=== PATIENT | female | born 1995 | race Caucasian/White ===

== ENCOUNTER 2016-10-03 19:03 | Emergency (ER) | payer OTHER ==
[2016-10-03 19:23] VITALS: BP 137/79; TEMP 99.4; BMI 26.4
[2016-10-03 20:57] VITALS: PULSE 115
--- NOTE | 2016-10-03 21:46 | PDOC ---
History of Present Illness - General History Source: Patient Exam Limitations: No Limitations - History of Present Illness Initial Comments: 10/03/16 21:46 The patient is a 21 year old female with a significant past medical history of asthma who presents to the ED with cold like symptoms for one day. The patient reports chills, dry cough, nasal congestion, generalized body aches, and a slight sore throat. The patient received her influenza vaccine this year. The patient arrives to the ED with her father who has similar symptoms. Denies shortness of breath or wheezing. Denies difficulty swallowing. Denies nausea, vomiting, or diarrhea. Denies fevers. <Kirby Randolph - Last Filed: 10/03/16 21:46> - General History Source: Patient Exam Limitations: No Limitations - History of Present Illness Timing/Duration: getting worse Severity: mild Associated Symptoms: reports: cough (dry ), other (chills and bodyaches, slight nasal congestion, slight sore throat). denies: chest pain, headaches, malaise, nausea/vomiting, rash, seizure, shortness of breath, syncope, weakness <Carli Moran - Last Filed: 10/03/16 22:15> - General Chief Complaint: Cold Symptoms Stated Complaint: COLD SYMPTOMS Time Seen by Provider: 10/03/16 20:30 Past History <Kirby Randolph - Last Filed: 10/03/16 21:46> - Past Medical History Asthma: Yes Cancer: Yes Suicide Attempt (Hx): No - Surgical History Abdominal Surgery: Yes (INGUINAL HERNIA REPAIR AT ) Appendectomy: Yes - Immunization History Immunization Up to Date: Yes - Psycho/Social/Smoking Cessation Hx Anxiety: No Suicidal Ideation: No Smoking Status: No Smoking History: Never smoked Number of Cigarettes Smoked Daily: 0 Cigars Per Day: 0 Hx Alcohol Use: No Substance Use Type: None <Carli Moran - Last Filed: 10/03/16 22:15> - Past Medical History Allergies/Adverse Reactions: Allergies Allergy/AdvReac Type Severity Reaction Status Date / Time No Known Allergies Allergy Verified 10/03/16 19:20 Home Medications: Ambulatory Orders Guaifenesin Dm [Mucinex Dm -] 1 tab PO Q12H PRN #10 tab.er.12h 10/03/16 Ibuprofen 600 mg PO Q6H PRN #18 tablet 10/03/16 Review of Systems - Review of Systems Able to Perform ROS?: Yes Constitutional: Yes: Chills HEENTM: Yes: Nose Congestion, Throat Pain Respiratory: Yes: Cough (dry intermittent today), Other. No: Shortness of Breath, SOB with Exertion, SOB at Rest, Stridor, Wheezing, Productive cough Cardiac (ROS): No: Symptoms Reported ABD/GI: No: Symptoms Reported : No: Symptoms Reported Musculoskeletal: Yes: Other (generalized bodyaches ) Integumentary: No: Symptoms Reported Neurological: No: Symptoms reported <Carli Moran - Last Filed: 10/03/16 22:15> *Physical Exam - Vital Signs Last Vital Signs Temp Pulse Resp BP Pulse Ox 99.4 F 115 H 19 137/79 99 10/03/16 20:57 10/03/16 20:57 10/03/16 20:57 10/03/16 19:20 10/03/16 20:57 <Kirby Randolph - Last Filed: 10/03/16 21:46> - Vital Signs Last Vital Signs Temp Pulse Resp BP Pulse Ox 99.4 F 115 H 19 137/79 99 10/03/16 20:57 10/03/16 20:57 10/03/16 20:57 10/03/16 19:20 10/03/16 20:57 - Physical Exam General Appearance: Yes: Appropriately Dressed HEENT: positive: Normal ENT Inspection Neck: negative: Lymphadenopathy (R), Lymphadenopathy (L) Respiratory/Chest: positive: Lungs Clear, Normal Breath Sounds. negative: Chest Tender, Respiratory Distress Cardiovascular: positive: Regular Rhythm, Regular Rate, S1, S2 Integumentary: positive: Normal Color Neurologic: positive: Fully Oriented, Alert, Normal Response, Responsive <Carli Moran - Last Filed: 10/03/16 22:15> Medical Decision Making - Medical Decision Making 10/03/16 22:07 The patient is a 21 year old female with a significant past medical history of asthma who presents to the ED with cold like symptoms for one day. The patient reports chills, dry cough, nasal congestion, generalized body aches, and a slight sore throat. The patient received her influenza vaccine this year. The patient arrives to the ED with her father who has similar symptoms. Denies shortness of breath or wheezing. Denies difficulty swallowing. Denies nausea, vomiting, or diarrhea. Denies fevers. Route out influenza Influenza-like illness PLAN: mucinex DM 1 tab q 12 hr prn cough for 5 days Albuterol pump as previously ordered influenza A & B rapid negative Ibuprofen or acetaminophen as needed for body aches as directed by kitchen mechanic 10/03/16 22:13 <Carli Moran - Last Filed: 10/03/16 22:15> *DC/Admit/Observation/Transfer - Attestations Scribe Attestion: 10/03/16 21:46 Documentation prepared by Kirby Randolph, acting as medical records tech for Emergency Dept,Physician, <Kirby Randolph - Last Filed: 10/03/16 21:46> <Carli Moran - Last Filed: 10/03/16 22:15> Diagnosis at time of Disposition: Influenza-like illness - Discharge Dispostion Disposition: HOME Condition at time of disposition: Stable - Referrals Referrals: Alba Mejia [Primary Care Provider] - - Patient Instructions Additional Instructions: Albuterol pump as previously ordered for wheezing or shortness of breath Take ibuprofen or acetaminophen as needed as directed by kitchen mechanic for body aches or fever Drink a lot of fluids and rest Return to emergency room if any difficulty breathing or swallowing Follow-up with your primary care provider within the next few days Patient voiced understanding of discharge instructions and all questions were answered
== END 2016-10-03 22:17 | disposition home or self-care (01) ==
LOC: JER 19:03 → JERFT 19:03
DX: J11.1 Influenza due to unidentified influenza virus with other respiratory manifestations (principal); J45.909 Unspecified asthma, uncomplicated
CPT/HCPCS: 87804; 99281-25

== ENCOUNTER 2016-10-10 17:45 | Emergency (ER) | payer OTHER ==
[2016-10-10 17:55] VITALS: TEMP 98.2; BMI 28.3
--- NOTE | 2016-10-10 18:16 | PDOC ---
History of Present Illness - General Chief Complaint: Pain Stated Complaint: SEVERE ABD PAIN/TROUBLE BREATHING Time Seen by Provider: 10/10/16 18:15 History Source: Patient - History of Present Illness Travel History: No Timing/Duration: reports: intermittent Abdominal Pain Onset Location: reports: RUQ Pain Radiation: reports: no radiation Activities at Onset: reports: none Past History - Travel Traveled outside of the country in the last 30 days: No Close contact w/someone who was outside of country & ill: No - Past Medical History Allergies/Adverse Reactions: Allergies Allergy/AdvReac Type Severity Reaction Status Date / Time No Known Allergies Allergy Verified 10/10/16 17:51 Home Medications: Ambulatory Orders NK [No Known Home Medication] 10/10/16 Asthma: Yes Cancer: Yes Suicide Attempt (Hx): No - Surgical History Abdominal Surgery: Yes (INGUINAL HERNIA REPAIR AT ) Appendectomy: Yes - Immunization History Immunization Up to Date: Yes - Psycho/Social/Smoking Cessation Hx Anxiety: No Suicidal Ideation: No Smoking Status: No Smoking History: Never smoked Number of Cigarettes Smoked Daily: 0 Cigars Per Day: 0 Information on smoking cessation initiated: No Hx Alcohol Use: No Drug/Substance Use Hx: No Substance Use Type: None Abd/GI Specific PMHX - Complaint Specific PMHX Colitis: No Diverticulitis: No Gall Bladder Disease: No GERD: No Hepatitis: No Review of Systems - Review of Systems Able to Perform ROS?: Yes Comments:: 10/10/16 22:50 CONSTITUTIONAL: Absent: fever, chills, diaphoresis, generalized weakness, malaise, loss of appetite HEENT: Absent: rhinorrhea, nasal congestion, throat pain, throat swelling, difficulty swallowing, mouth swelling, ear pain, eye pain, visual Changes CARDIOVASCULAR: Absent: chest pain, loss of consciousness, palpitations, irregular heart rate, peripheral edema RESPIRATORY: Absent: cough, shortness of breath, dyspnea with exertion, orthopnea, wheezing, stridor, hemoptysis GASTROINTESTINAL: +RUQ pain/RLQ pain Absent: abdominal distension, nausea, vomiting, diarrhea, constipation, melena , hematochezia GENITOURINARY: Absent: dysuria, frequency, urgency, hesitancy, hematuria, flank pain, genital pain MUSCULOSKELETAL: Absent: myalgia, arthralgia, joint swelling SKIN: Absent: rash, itching, pallor HEMATOLOGIC/IMMUNOLOGIC: Absent: easy bleeding, easy bruising, lymphadenopathy, frequent infections ENDOCRINE: Absent: unexplained weight gain, unexplained weight loss, heat intolerance, cold intolerance NEUROLOGIC: Absent: headache, focal weakness or paresthesias, dizziness, unsteady gait, seizure, mental status changes, bladder or bowel incontinence PSYCHIATRIC: Absent: anxiety, depression, suicidal or homicidal ideation, hallucinations. Is the patient limited Persian proficient: No *Physical Exam - Vital Signs Last Vital Signs Temp Pulse Resp BP Pulse Ox 98.2 F 138 H 18 152/78 100 10/10/16 17:52 10/10/16 17:52 10/10/16 17:52 10/10/16 17:52 10/10/16 17:52 - Physical Exam Comments: 10/10/16 22:50 GENERAL: Well developed, well nourished. Awake and alert. No acute distress. HEENT: Normocephalic, atraumatic. PERRLA, EOMI. No conjunctival pallor. Sclera are non- icteric. Moist mucous membranes. Oropharynx is clear. NECK: Supple. Full ROM. No JVD. Carotid pulses 2+ and symmetric, without bruits. No thyromegaly. No lymphadenopathy. CARDIOVASCULAR: Regular rate and rhythm. No murmurs, rubs, or gallops. Distal pulses are 2+ and symmetric. PULMONARY: No evidence of respiratory distress. Lungs clear to auscultation bilaterally. No wheezing, rales or rhonchi. ABDOMINAL: +RUQ/+RLQ pain on palp Soft. Non-distended. No rebound or guarding. No organomegaly. Normoactive bowel sounds. MUSCULOSKELETAL Normal range of motion at all joints. No bony deformities or tenderness. No CVA tenderness. EXTREMITIES: No cyanosis. No clubbing. No edema. No calf tenderness. SKIN: Warm and dry. Normal capillary refill. No rashes. No jaundice. NEUROLOGICAL: Alert, awake, appropriate. Cranial nerves 2-12 intact. No deficits to light touch and temperature in face, upper extremities and lower extremities. No motor deficits in the in face, upper extremities and lower extremities. Normoreflexic in the upper and lower extremities. Normal speech. Toes are down- going bilaterally. Gait is normal without ataxia. PSYCHIATRIC: Cooperative. Good eye contact. Appropriate mood and affect. ED Treatment Course - LABORATORY CBC & Chemistry Diagram: 10/10/16 18:20 10/10/16 18:20 Progress Note - Progress Note Progress Note: 21-year-old female presents to the emergency department complaining of right upper quadrant/right lower quadrant pain. Pain is described as 8/10 pressure nonradiating intermittent discomfort. Pain is exacerbated after eating and alleviated minimally at rest. Patient denies nausea/vomiting, fever/chills/ diarrhea, headache, chest pain, shortness of breath, flank pain, urinary symptoms. Last bowel movement x4h ago( normal coonsistency and color) LMP x2 weeks ago *DC/Admit/Observation/Transfer Diagnosis at time of Disposition: Mesenteric adenitis - Discharge Dispostion Disposition: HOME Condition at time of disposition: Improved - Referrals Referrals: Alba Mejia [Primary Care Provider] - - Patient Instructions Printed Discharge Instructions: DI for Mesenteric Adenitis-Adult Additional Instructions: You have to been given a copy of the CAT scan report. We have discussed in length that the CAT scan report is only a preliminary reading. The final reading will be done within 48 hours. As I have informed you , the CAT scan report states he appendix was not fully identified but mesenteric adenitis was visualized. Please follow up with your physician within 48 hours. Rest Increase fluids I have prescribed you medication for nausea and a nonsteroidal anti- inflammatory drug. Please take it sparingly. Return back to the emergency department for any severe/persistent or worsening symptoms.
[2016-10-10] MEDS ORDERED: SODIUM CHLORIDE 1,000 ML IV STA (18:17)
[2016-10-10] MEDS ORDERED: morphine CARPU-JECT 2 MG/1 ML DISP.SYRIN IVPUSH ONE (18:18)
[2016-10-10 18:29] LABS: URINE APPEARANCE CLEAR; URINE BILIRUBIN 1+ (NEGATIVE); URINE BLOOD NEGATIVE (NEGATIVE); URINE COLOR YELLOW; URINE GLUCOSE (UA) NEGATIVE (NEGATIVE); URINE KETONE 1+ (NEGATIVE); URINE LEUK ESTERASE NEGATIVE (NEGATIVE); URINE NITRITE NEGATIVE (NEGATIVE); URINE PROTEIN TRACE (NEGATIVE); URINE UROBILINOGEN 0.2 E.U/dl E.U./dl (0.2-1.0)
[2016-10-10 18:30] LABS: BASOPHIL 0.3 % (0-2.0); EOSINOPHIL 3.3 % (0-4.5); MCH 28.2 pg (25.7-33.7); MEAN CELL VOLUME 85.6 fl (80-96); MEAN PLT VOLUME 8.7 fl (7.5-11.1); NEUTROPHILS 81.3 % (42.8-82.8); PLATELET COUNT 327 K/MM3 (134-434); RDW 13.4 % (11.6-15.6); WHITE BLOOD COUNT 13.9 K/mm3 (4.0-10.0)
[2016-10-10] MEDS ORDERED: morphine CARPU-JECT 2 MG/1 ML DISP.SYRIN ONE (18:56)
[2016-10-10 19:02] LABS: AMYLASE 88 U/L (25-115); ANION GAP 12 (8-16); BILIRUBIN,TOTAL 0.4 mg/dL (0.2-1.0); CALCIUM 9.6 mg/dL (8.5-10.1); CO2 19 mmol/L (21-32); CREATININE 0.8 mg/dL (0.55-1.02); GLUCOSE,RANDOM 94 mg/dL (74-106); SGOT/AST 19 U/L (15-37); SGPT/ALT 19 U/L (12-78); TOT PROT 8.8 g/dl (6.4-8.2)
[2016-10-10 19:03] LABS: ALK PHOS 86 U/L (45-117)
[2016-10-10] MEDS ORDERED: KETOROLAC TROMETHAMINE 30 MG/1 ML VIAL IVPUSH ONE (22:36)
[2016-10-10] MEDS ORDERED: KETOROLAC TROMETHAMINE 30 MG/1 ML VIAL ONE (23:09)
[2016-10-10 23:23] VITALS: BP 126/66; PULSE 70
== END 2016-10-10 23:23 | disposition home or self-care (01) ==
LOC: JER 17:45
PROC: 3E0333Z Introduction of Anti-inflammatory into Peripheral Vein, Percutaneous Approach (ICD-10-PCS; principal; 2016-10-10)
PROC: 3E033NZ Introduction of Analgesics, Hypnotics, Sedatives into Peripheral Vein, Percutaneous Approach (ICD-10-PCS; 2016-10-10)
DX: I88.0 Nonspecific mesenteric lymphadenitis (principal)
CPT/HCPCS: 36415; 74177-TC; 76705-TC; 80053; 81003; 82150; 83690; 84703; 85025; 96374; 96375; 99282-25; Q9967